=== PATIENT | male | born 1980 | race Caucasian/White ===

== ENCOUNTER 2019-01-11 18:06 | Emergency (ER) | payer SELFPAY ==
--- NOTE | 2019-01-11 18:39 | EDM.PDOC ---
ED HPI GENERAL MEDICAL PROBLEM - General Chief Complaint: General Stated Complaint: TOOTH PAIN UPPER LEFT SIDE Time Seen by Provider: 01/11/19 18:25 Source of Information: Reports: Patient, Family History Limitations: Reports: No Limitations - History of Present Illness INITIAL COMMENTS - FREE TEXT/NARRATIVE: 38-year-old male with left upper dental pain for the past 10 hours. He has advanced dental decay throughout, upper and lower, and his been trying to get dentist to pull his teeth but they keep trying to repair them. His dental insurance starts on February 12. He started developing pain earlier today and now it's intense, he feels like his upper hard palate area on the left side is swollen and its radiating up into the right side of his head causing a headache. He has responded well to antibiotics when this has happened in the past. Onset: Gradual Duration: Hour(s): (6-8 hours ago) Location: Reports: Face Left Upper Oral/Mouth Pain Score (Numeric/FACES): 10 - Related Data Allergies Allergy/AdvReac Type Severity Reaction Status Date / Time No Known Allergies Allergy Verified 01/11/19 18:18 Home Meds: Home Meds NK [No Known Home Meds] 01/11/19 [History] Past Medical History HEENT History: Reports: Impaired Vision - Past Surgical History Head Surgeries/Procedures: Reports: None HEENT Surgical History: Reports: None Dermatological Surgical History: Reports: None Social & Family History - Tobacco Use Smoking Status *Q: Current Every Day Smoker Years of Tobacco use: 20 Packs/Tins Daily: 0.5 Used Tobacco, but Quit: No Second Hand Smoke Exposure: Yes - Caffeine Use Caffeine Use: Reports: Coffee, Soda - Recreational Drug Use Recreational Drug Use: No ED ROS GENERAL - Review of Systems Review Of Systems: See Below Constitutional: Denies: Fever, Chills HEENT: Reports: Other (Severe left arm pain) Respiratory: Denies: Shortness of Breath GI/Abdominal: Denies: Abdominal Pain, Nausea, Vomiting Skin: Reports: No Symptoms Neurological: Reports: Headache ED EXAM, GENERAL - Physical Exam Exam: See Below Exam Limited By: No Limitations General Appearance: Alert, Anxious, Moderate Distress Throat/Mouth: Other (This patient has widespread severe advanced dental decay. There is tenderness around the left canines, they are eroded almost flush with the gum. There is no fluctuance.) Respiratory/Chest: No Respiratory Distress Cardiovascular: Regular Rate, Rhythm, Tachycardia Course - Vital Signs Last Recorded V/S: Last Vital Signs Temp 98.9 F 01/11/19 18:20 Pulse 114 H 01/11/19 18:20 Resp 18 01/11/19 18:20 BP 178/120 H 01/11/19 18:20 Pulse Ox 98 01/11/19 18:20 - Re-Assessments/Exams Free Text/Narrative Re-Assessment/Exam: 01/11/19 18:38 Patient is self-pay and wants to keep his costs down and wants to try medication. He'll be placed on penicillin 500 mg 4 times a day and given 20 hydrocodone. If not significant improvement by Sunday morning, he will be willing to try our dental clinic. Otherwise he is currently taking entire course medication and see a dentist in February. He'll return sooner if worsening such as facial swelling or fever. Departure - Departure Time of Disposition: 18:44 Disposition: Home, Self-Care 01 Clinical Impression: Dental abscess - Discharge Information Instructions: Dental Abscess, [id number] Referrals: PCP,None [Primary Care Provider] - Forms: ED Department Discharge Care Plan Goals: Take 4 doses of antibiotic daily until gone. Continue with ibuprofen and add stronger pain medication as needed. Consider rechecking in 2-3 days if not significant improvement, or return sooner if worsening such as significant facial swelling or fever.
== END 2019-01-11 18:44 | disposition home or self-care (01) ==
LOC: JP.ED 18:06
DX: K04.7 Periapical abscess without sinus (principal); M79.602 Pain in left arm; F17.210 Nicotine dependence, cigarettes, uncomplicated
CPT/HCPCS: 99282; 99283